=== PATIENT | female | born 1935 | race Caucasian/White ===

== ENCOUNTER 2017-02-03 09:07 | Emergency (ER) | payer MEDICARE, OTHER ==
[~2017-02-03] VITALS: Ht 152.4 cm; Wt 65.8 kg
[~2017-02-03 09:07] MED LIST: BACTROBAN22 GM TOP; CHERATUSSIN AC10 ML PO; CYMBALTA30 MG PO; CYMBALTA60 MG PO; ELIQUIS5 MG PO; MUCINEX600 MG PO; MYRBETRIQ25 MG PO; NORCO 325-5 MG1 TAB PO; NORVASC2.5 MG PO; OS-CAL 500+D31 EAC1 PO; PROCTOZONE-HC30 GM RECTAL; SENNA-S TABLET1 EACH PO; SINEMET 25-1001 TAB PO; THERA M PLUS T1 EACH PO; TUMS500 MG PO; VITAMIN D31000 UNIT PO; XANAX1 MG PO
[2017-02-03] MEDS ORDERED: PRILOSEC40 MG PO (12:10)
[2017-02-03] MEDS ORDERED: TYLENOL500 MG PO ×2 (12:12→12:14)
[2017-02-03] MEDS ORDERED: XANAX0.5 MG PO (12:16)
[2017-02-03] MEDS ORDERED: RESTASIS1 EACH EYEBOTH (12:18)
[2017-02-03] MEDS ORDERED: SYSTANE 0.3-0.1 EACH EYEBOTH (12:21)
[2017-03-07] MEDS ORDERED: ULTRAM50 MG PO (23:18)
[2017-03-09] MEDS ORDERED: ULTRAM50 MG PO (07:58)
[2017-03-09] MEDS ORDERED: REFRESH PLUS1 EACH EYEBOTH (08:14)
[2017-03-09] MEDS ORDERED: PRILOSEC20 MG PO (08:24)
[2017-03-09] MEDS ORDERED: ASPIRIN81 MG PO (08:27)
== END 2017-02-03 11:40 | disposition short-term general hospital (02) ==
LOC: ER 09:07
DX: R07.89 Other chest pain (principal); F32.9 Major depressive disorder, single episode, unspecified; F41.9 Anxiety disorder, unspecified; Z88.1 Allergy status to other antibiotic agents; Z88.8 Allergy status to other drugs, medicaments and biological substances

== ENCOUNTER 2017-03-15 08:00 | Inpatient (IN) | payer MEDICARE, OTHER ==
[~2017-03-15] VITALS: Ht 152.4 cm; Wt 69.1 kg
[~2017-03-15 08:00] MED LIST changes: +ASPIRIN81 MG PO; +PRILOSEC20 MG PO; +PRILOSEC40 MG PO; +REFRESH PLUS1 EACH EYEBOTH; +RESTASIS1 EACH EYEBOTH; +SYSTANE 0.3-0.1 EACH EYEBOTH; +TYLENOL500 MG PO; +ULTRAM50 MG PO; +XANAX0.5 MG PO
[2017-03-22] MEDS ORDERED: ELIQUIS5 MG PO (08:13)
[2017-03-22] MEDS ORDERED: SENNA-S TABLET1 EACH PO (08:20)
[2017-03-22] MEDS ORDERED: MIRALAX17 GM PO (08:21)
== END 2017-03-22 08:55 | disposition home health service (06) | DRG 183 ==
LOC: SB 08:00 → IP 08:00 → SB 03-22 08:55
PROVIDERS: ADMIT Family Medicine
DX: S22.42XA Multiple fractures of ribs, left side, initial encounter for closed fracture (principal); J18.9 Pneumonia, unspecified organism; J98.11 Atelectasis; W07.XXXA Fall from chair, initial encounter; Y92.039 Unspecified place in apartment as the place of occurrence of the external cause; M25.512 Pain in left shoulder; I10 Essential (primary) hypertension; D64.9 Anemia, unspecified

== ENCOUNTER 2017-04-12 10:44 | Observation (INO) | payer MEDICARE, OTHER ==
[~2017-04-12] VITALS: Ht 152.4 cm; Wt 65.5 kg
[~2017-04-12 10:44] MED LIST changes: +MIRALAX17 GM PO
[2017-04-12] MEDS ORDERED: ALPRAZOLAM ER0.5 MG PO (13:53)
[2017-04-13] MEDS ORDERED: NORVASC5 MG PO ×2 (09:17)
== END 2017-04-13 13:30 | disposition short-term general hospital (02) ==
LOC: CT 10:44 → OBS 12:25 → IP 12:25
PROVIDERS: ADMIT Family Medicine
DX: I48.91 Unspecified atrial fibrillation (principal); I10 Essential (primary) hypertension; R53.1 Weakness; F32.9 Major depressive disorder, single episode, unspecified; F41.9 Anxiety disorder, unspecified; I82.409 Acute embolism and thrombosis of unspecified deep veins of unspecified lower extremity; K21.9 Gastro-esophageal reflux disease without esophagitis; M81.0 Age-related osteoporosis without current pathological fracture; Z88.1 Allergy status to other antibiotic agents; Z88.8 Allergy status to other drugs, medicaments and biological substances; Z79.01 Long term (current) use of anticoagulants; Z79.899 Other long term (current) drug therapy; Z90.49 Acquired absence of other specified parts of digestive tract; Z98.890 Other specified postprocedural states
CPT/HCPCS: G0378; G8981-GP; G8982-GP; G8987-GO; G8988-GO

== ENCOUNTER 2017-05-10 21:15 | Emergency (ER) | payer MEDICARE, OTHER ==
[~2017-05-10] VITALS: Ht 152.4 cm; Wt 63.5 kg
[~2017-05-10 21:15] MED LIST changes: +ALPRAZOLAM ER0.5 MG PO; +NORVASC5 MG PO
== END 2017-05-10 22:15 | disposition short-term general hospital (02) ==
LOC: ER 21:15
DX: R60.0 Localized edema (principal)